=== PATIENT | female | born 2000 | race African-American/Black ===

== ENCOUNTER 2018-03-17 23:18 | Emergency (ER) | END 2018-03-18 04:20 | disposition home or self-care (01) ==

== ENCOUNTER 2018-11-19 11:33 | Emergency (ER) | payer MEDICAID ==
[~2018-11-19] VITALS: Ht 167.6 cm; Wt 60.0 kg
[~2018-11-19 11:33] MED LIST: IBUP-1542 PO; TRAM50TA2 PO
[2018-11-19 11:51] VITALS: Ht 167.6 cm; Wt 60.0 kg
[2018-11-19] MEDS ORDERED: SOD CHLORIDE 0.9% 1,000 ML IV STA (11:56)
[2018-11-19] MEDS ORDERED: ACETAMINOPHEN 500 MG TAB PO STA (11:56)
[2018-11-19] MEDS ORDERED: ONDANSETRON 4 MG INJ IV STA (11:56)
[2018-11-19] MEDS ORDERED: LEVO50TA7 PO (12:44)
--- NOTE | 2018-11-19 13:12 | ERD ---
ER Documentation Chief Complaint Chief Complaint BIB RA FOR EVAL OF SYNCOPAL EPISODE. 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 The patient presents today with an episode of syncope. She states that she does have a history of menorrhagia and anemia. Patient felt weak all day and just prior to arrival had a sensation that she might pass out. She had a witnessed syncopal episode without seizure activity, no postictal state. Patient did fall to the ground and hit the left frontal head but has a mild headache at this time. Patient denies any prodrome of chest pain, shortness of breath, pleuritic pain or headache. Otherwise she feels at baseline. ROS All systems reviewed and are negative except as per history of present illness. Medications Home Meds Reported Medications Levothyroxine Sodium* (Levothyroxine Sodium*) 50 Mcg Tablet, 50 MCG PO BEFORE BREAKFAST, #30 TAB 11/19/18 Discontinued Reported Medications [none] Unknown Strength No Conflict Check 03/18/18 Discontinued Scripts Tramadol HCl (Tramadol HCl) 50 Mg Tablet, 50 MG PO Q6 PRN for SEVERE PAIN LEVEL 7-10, #20 TAB Prov:ANJU BOYD NP 03/18/18 Ibuprofen* (Motrin*) 600 Mg Tab, 600 MG PO Q6H PRN for PAIN AND OR ELEVATED TEMP, #30 TAB Prov:ANJU BOYD [employer] 03/18/18 Allergies Allergies: Coded Allergies: sulfamethoxazole (Verified Allergy, Unknown, 11/19/18) trimethoprim (Verified Allergy, Unknown, 11/19/18) PMhx/Soc History of Surgery: No Anesthesia Reaction: No Hx Neurological Disorder: No Hx Respiratory Disorders: No Hx Cardiac Disorders: No Hx Psychiatric Problems: No Hx Miscellaneous Medical Probl: Yes (RUPTURED Ovarian cyst, HYPOTHYROID ) Hx Alcohol Use: No Hx Substance Use: No Hx Tobacco Use: No Smoking Status: Never smoker FmHx Family History: No coronary disease Physical Exam Vitals Vital Signs Date Temp Pulse Resp B/P (MAP) Pulse Ox O2 O2 Flow FiO2 Time Delivery Rate 11/19/18 81 17 127/75 100 Room Air 12:25 (92) 11/19/18 98.7 90 17 127/75 100 11:51 (92) Physical Exam General: Well developed, well nourished, no acute distress Head: Normocephalic, atraumatic. Eyes: Pupils equally reactive, EOM intact ENT: Moist mucous membranes Neck: Supple, no lymphadenopathy, no midline tenderness, deformities, step-offs to the cervical spine, full active and passive range of motion without midline pain. Respiratory: Lungs clear bilaterally, no distress Cardiovascular: RRR, no murmurs, rubs, or gallops Abdominal: Soft, non-tender, non-distended, no peritoneal signs : Deferred MSK: No edema, no unilateral swelling, 5/5 strength Neurologic: Alert and oriented, moving all extremities, normal speech, no focal weakness, no cerebellar signs Skin: No rash Psych: Normal mood Result Diagram: 11/19/18 1226 11/19/18 1226 Results 24 hrs Laboratory Tests Test 11/19/18 12:26 11/19/18 12:29 White Blood Count 8.4 10^3/ul Red Blood Count 4.44 10^6/ul Hemoglobin 12.9 g/dl Hematocrit 39.8 % Mean Corpuscular Volume 89.6 fl Mean Corpuscular Hemoglobin 29.1 pg Mean Corpuscular Hemoglobin Concent 32.4 g/dl Red Cell Distribution Width 11.7 % Platelet Count 280 10^3/UL Mean Platelet Volume 9.2 fl Immature Granulocytes % 0.200 % Neutrophils % 77.8 % Lymphocytes % 15.0 % Monocytes % 5.2 % Eosinophils % 1.0 % Basophils % 0.8 % Nucleated Red Blood Cells % 0.0 /100WBC Immature Granulocytes # 0.020 10^3/ul Neutrophils # 6.5 10^3/ul Lymphocytes # 1.3 10^3/ul Monocytes # 0.4 10^3/ul Eosinophils # 0.1 10^3/ul Basophils # 0.1 10^3/ul Nucleated Red Blood Cells # 0.0 10^3/ul Sodium Level 141 mmol/L Potassium Level 4.1 mmol/L Chloride Level 104 mmol/L Carbon Dioxide Level 24 mmol/L Anion Gap 13 Blood Urea Nitrogen 13 mg/dl Creatinine 0.90 mg/dl Est Glomerular Filtrat Rate mL/min > 60 mL/min Glucose Level 101 mg/dl Calcium Level 9.8 mg/dl POC Beta HCG, Qualitative NEGATIVE Current Medications Medications Dose Sig/Tomi Start Time Status Last (Trade) Ordered Route PRN Stop Time Admin Dose Reason Admin Sodium 1,000 ml @ Q1H STAT 11/19/18 DC 11/19/18 Chloride 1,000 mls/hr IV 11:56 11/19/18 12:27 12:55 1,000 mg ONCE STAT 11/19/18 DC 11/19/18 Acetaminophen PO 11:56 11/19/18 12:29 (Tylenol 11:59 Tab) Ondansetron 4 mg ONCE STAT 11/19/18 DC 11/19/18 HCl (Zofran IV 11:56 11/19/18 12:29 Inj) 11:59 Procedures/MDM EKG, MONITORS, & DIAGNOSTIC IMAGING: EKG: I reviewed and interpreted a 12-lead EKG. Rhythm: Normal sinus rhythm ST Changes: No contiguous ST segment elevations T waves: No contiguous T wave inversions Impression: No evidence of acute cardiac ischemia, normal QRS and QTc LAB INTERPRETATION: I reviewed the laboratory testing and it shows no evidence of acute process, negative MEDICAL DECISION MAKING: The patient presents with an idiopathic episode of syncope that was likely vasovagal. The patient does have a history of anemia and would benefit from a CBC to rule out anemia secondary to menorrhagia. Low concern for ectopic given no abdominal pain no vaginal bleeding but test would be indicated. She had no prodrome of chest pain or shortness of breath or headache to suggest more serious etiology such as ACS, arrhythmia, pulmonary embolism, subarachnoid hemorrhage or dissection. While the patient did hit her head she hit the front of her head and has no signs or symptoms concerning for clinically significant traumatic brain injury. I do not believe that CT imaging is necessary. The risks of radiation outweigh any benefits. I discussed his risk benefits and alternatives with the patient who is agreeable. Tylenol to be provided for her headache. Headache occurred after the syncope and not before. ER COURSE: * The patient was treated with IV fluids, Tylenol and continues to be well- appearing in the emergency room setting. Laboratory testing is unrevealing. The patient can be safely discharged with primary care follow-up and return precautions. She has chronic nausea that is being managed on an outpatient basis. CONSULTATION: None DISPOSITION PLAN: The patient does not have an identifiable emergent medical condition that warrants inpatient hospitalization at this time. The patient is deemed safe for discharge with outpatient follow-up. We discussed follow up with the patient's primary care doctor within 24 to 48 hours as needed. We also discussed return to the emergency room for worsening s ymptoms or worsening condition. Outpatient referral: None required Discharge Medications: None required Departure Diagnosis: Primary Impression: Syncope Syncope type: unspecified Qualified Codes: R55 - Syncope and collapse Additional Impression: Chronic nausea Condition: Stable Patient Instructions: Causes of Syncope Referrals: [facility] YOU HAVE RECEIVED A MEDICAL SCREENING EXAM AND THE RESULTS INDICATE THAT YOU DO NOT HAVE A CONDITION THAT REQUIRES URGENT TREATMENT IN THE EMERGENCY DEPARTMENT. FURTHER EVALUATION AND TREATMENT OF YOUR CONDITION CAN WAIT UNTIL YOU ARE SEEN IN YOUR DOCTORS OFFICE WITHIN THE NEXT 1-2 DAYS. IT IS YOUR RESPONSIBILITY TO MAKE AN APPOINTMENT FOR FOLOW-UP CARE. IF YOU HAVE A PRIMARY DOCTOR --you should call your primary doctor and schedule an appointment IF YOU DO NOT HAVE A PRIMARY DOCTOR YOU CAN CALL OUR PHYSICIAN REFERRAL HOTLINE AT IF YOU CAN NOT AFFORD TO SEE A PHYSICIAN YOU CAN CHOSE FROM THE FOLLOWING [facility] [address] [facility]. [facility] [address] [facility] [address] [facility] [facility] [address] [facility] [place] [address] [facility]. [facility] [address] [facility]. [facility] YOU HAVE RECEIVED A MEDICAL SCREENING EXAM AND THE RESULTS INDICATE THAT YOU DO NOT HAVE A CONDITION THAT REQUIRES URGENT TREATMENT IN THE EMERGENCY DEPARTMENT. FURTHER EVALUATION AND TREATMENT OF YOUR CONDITION CAN WAIT UNTIL YOU ARE SEEN IN YOUR DOCTORS OFFICE WITHIN THE NEXT 1-2 DAYS. IT IS YOUR RESPONSIBILITY TO MAKE AN APPOINTMENT FOR FOLOW-UP CARE. IF YOU HAVE A PRIMARY DOCTOR --you should call your primary doctor and schedule and appointment IF YOU DO NOT HAVE A PRIMARY DOCTOR YOU CAN CALL OUR PHYSICIAN REFERRAL HOTLINE AT . 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 Please return for any recurrent episodes. Return for any syncope associated with chest pain or severe headaches. TAMMY VILLEGAS MD Nov 19, 2018 13:12
[2018-11-19 13:16] VITALS: BP 130/75; PULSE 77; RESP 17
== END 2018-11-19 14:02 | disposition home or self-care (01) ==
LOC: E/R 11:33
DX: R55 Syncope and collapse (principal); E03.9 Hypothyroidism, unspecified; R11.0 Nausea
CPT/HCPCS: 36415; 80048; 81025; 85025; 93005; 96374; J2405; J7030; Z7502; Z7610